=== PATIENT | male | born 2000 | race Caucasian/White ===

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

== ENCOUNTER 2024-02-01 08:56 | Emergency (ER) | payer MEDICAID ==
[~2024-02-01] VITALS: Ht 170.2 cm; Wt 150.0 kg
[2024-02-01 09:06] VITALS: O2SAT 100
[2024-02-01] MEDS: LORAZEPAM 0.5MG TABLET PO ONE (11:10)
[2024-02-01 11:55] VITALS: BP 118/78; PULSE 102; RESP 26; TEMP 98.6
== END 2024-02-01 11:57 | disposition home or self-care (01) ==
LOC: ER 08:56
DX: F41.9 Anxiety disorder, unspecified (principal)
CPT/HCPCS: 99283

== ENCOUNTER 2025-03-06 16:29 | Emergency (ER) | payer MEDICAID ==
[~2025-03-06] VITALS: Ht 167.6 cm; Wt 73.0 kg
[2025-03-06 16:36] VITALS: TEMP 36.9; O2SAT 99
[2025-03-06] MEDS: IBUPROFEN 600MG TABLET PO ONE (19:14)
[2025-03-06] MEDS: LIDOCAINE HCL 1% 20ML VIAL INL ONE (19:14)
[2025-03-06] MEDS: TETANUS, DIPHTHERIA, PERTUSSIS VAC/PF 0.5ML (>10YR OLD) IM ONE (19:18)
[2025-03-06] MEDS ORDERED: IBUP-2029 MT (20:47)
[2025-03-06] MEDS ORDERED: BO1 TP (20:55)
[2025-03-06 21:15] VITALS: BP 112/64; PULSE 60; RESP 14; O2SAT 99
== END 2025-03-06 21:20 | disposition home or self-care (01) ==
LOC: ER 16:29
DX: S61.216A Laceration without foreign body of right little finger without damage to nail, initial encounter (principal); F41.9 Anxiety disorder, unspecified; Z79.899 Other long term (current) drug therapy; X58.XXXA Exposure to other specified factors, initial encounter; Y93.89 Activity, other specified; Y92.89 Other specified places as the place of occurrence of the external cause; Y99.8 Other external cause status
CPT/HCPCS: 99282; 12001; J2003

== ENCOUNTER 2025-03-15 09:41 | Emergency (ER) | payer MEDICAID ==
[~2025-03-15] VITALS: Ht 167.6 cm; Wt 73.0 kg
[~2025-03-15 09:41] MED LIST: BO1 TP; IBUP-2029 MT
[2025-03-15 09:43] VITALS: O2SAT 99
[2025-03-15 09:58] VITALS: BP 111/77; PULSE 55; RESP 18; TEMP 36.7; O2SAT 100
== END 2025-03-15 11:24 | disposition home or self-care (01) ==
LOC: ER 09:41
DX: S61.411D Laceration without foreign body of right hand, subsequent encounter (principal); F41.9 Anxiety disorder, unspecified; X58.XXXD Exposure to other specified factors, subsequent encounter
CPT/HCPCS: 99281